=== PATIENT | male | born 1975 | race Caucasian/White ===

== ENCOUNTER 2024-05-25 10:38 | Outpatient (AMB) | payer BC, SELFPAY ==
[2024-05-25 11:14] VITALS: BMI 35.6
--- NOTE | 2024-05-25 11:14 | HO.SPINEOV ---
Vital Signs 05/25/24 11:14 Height 5 ft 10 in Weight 248 lb BMI 35.6 Intake Visit Reasons: spinal stenosis/radiculopathy cervical region Intake Note: Mr. Peck is here today c/o neck pain that radiates to both arms that cause headaches and dizziness. Biochemistry Technician Required: No Allergies No Known Allergies Allergy (Verified 05/25/24 11:15) Physical Exam Vital Signs: BMI result Body Mass Index 35.6 Assessment & Plan Assessment & Plan (1) Cervical radiculopathy due to intervertebral disc disorder: Code(s): M50.10 - Cervical disc disorder with radiculopathy, unspecified cervical region Category: Medical Plan Dear colleague Thank you for referring Shawn Peck to the office today with a chief complaint of right neck and arm pain. HPI: This 48-year-old male has a more than 2 year history of right-sided neck pain, shoulder blade and radiating down his right arm predominantly into his palm area. I saw him for the symptoms in my previous practice and referred him for pain management. A C6 epidural steroid injection was done which provided complete relief. An EMG was done which shows right C6 radiculopathy. He also complains of a left-sided neck pain that is most likely related to bad positioning when he sleeps on the couch or in a recliner due to excessive snoring. Second complaint is back pain with intermittent sciatica, most standing or prolonged sitting. He returns to my new practice with similar symptoms and is looking for a permanent solution. The following conservative treatment options were tried without success antiinflammatories, tylenol, physical therapy, cortisone shots PMH: Hypertension, ADHD Medications: Lisinopril, Adderall, meloxicam, gabapentin Allergies: NKDA Social history: Nonsmoker. Works in the insurance industry Physical Exam: Pleasant male. Spurling test is positive with radiating pain down his right arm. No motor or sensory deficits. I think the right biceps reflex is less prominent than the left Radiological Studies: MRI done at [facility] on 01/17/2024 was compared to an MRI of 2020 and shows again severe right C6 foraminal stenosis most likely due to a small disc fragment. Impression/Plan: This patient is suffering from right cervical radiculopathy most likely related to the C6 foraminal stenosis. If we consider surgery then I would offer him an a total disc arthroplasty C5-C6. He is going to think about and may come back to further discuss this and possibly schedule surgery. Thank you for allowing me to participate in your patients care. total time spent was 50 minutes in counseling ,coordination of plan, personal review of imaging, surgical decision making and subsequent plan Osvaldo Valentin MD, PhD Sp[facility] Trained Neurosurgeon Director, [facility] Coding Level of Care Code New Pt Level 4 (23820) Diagnoses Cervical radiculopathy due to intervertebral disc disorder M50.10
--- OUTSIDE RECORDS SUMMARY | 2024-05-30 07:42 | XMS_ITS | Continuity of Care Document ---
Author Organization [facility] Address [address] [place] [address] Insurance Providers Payer Plan Claims Address Claims Phone Policy Number Group Number Relation Employer Guarantor Name Guarantor Guarantor Address Guarantor Phone [employer] [id number], [place] [address] tel:[phone] Self Shawn Herrera 1975 [address] [place] [address] Problems Unknown Problems Results No Results Allergies, adverse reactions, alerts No known allergies and adverse reactions Medications No administered medications reported Vital Signs Date Vital Result Comment 09/02/2022 Body Height [id number] m Body Weight 108.59493442815 kg Body Mass Index 34.44 kg/m2 Social History No smoking Hx information available
== END 2024-05-25 11:52 | disposition home or self-care (01) ==
PROVIDERS: PCP Family Medicine; Referring Provider Physical Medicine & Rehabilitation; Visit Provider Neurological Surgery
DX: M50.10 Cervical disc disorder with radiculopathy, unspecified cervical region (principal)
CPT/HCPCS: 99204